=== PATIENT | male | born 1995 | race Caucasian/White ===

== ENCOUNTER 2021-09-03 19:09 | Emergency (ER) | payer OTHER ==
[~2021-09-03] VITALS: Ht 167.6 cm; Wt 68.2 kg
[2021-09-03] MEDS: TraMADol HCL 50 MG TABLET PO ONE ×2 (19:53→20:13)
[2021-09-03 20:02] VITALS: BP 132/74
[2021-09-03] MEDS ORDERED: IBUP-2070 PO (20:08)
== END 2021-09-03 20:57 | disposition home or self-care (01) ==
LOC: EMS 19:16
DX: S92.352A Displaced fracture of fifth metatarsal bone, left foot, initial encounter for closed fracture (principal); X50.1XXA Overexertion from prolonged static or awkward postures, initial encounter; Y93.89 Activity, other specified; Y92.89 Other specified places as the place of occurrence of the external cause; Y99.8 Other external cause status
CPT/HCPCS: 29515; 99284

== ENCOUNTER 2023-09-21 15:27 | Emergency (ER) | payer BC, OTHER ==
[~2023-09-21] VITALS: Ht 172.7 cm; Wt 76.0 kg
[~2023-09-21 15:27] MED LIST: IBUP-1492 PO
[2023-09-21 15:39] VITALS: BP 143/84; TEMP 98.3
[2023-09-21] MEDS ORDERED: LIDO700A15 TP (16:15)
[2023-09-21] MEDS ORDERED: ACET-3385 PO (16:15)
[2023-09-21] MEDS ORDERED: IBUP-1492 PO (16:15)
[2023-09-21] MEDS: ACETAMINOPHEN 500 MG TABLET PO ONE (16:45)
[2023-09-21] MEDS: LIDOCAINE 5% TRANSDERMAL PATCH TD ONE (16:45)
[2023-09-21 17:07] VITALS: PULSE 78; RESP 16; O2SAT 98
== END 2023-09-21 17:20 | disposition home or self-care (01) ==
LOC: EMS 15:27
DX: R07.82 Intercostal pain (principal); F17.210 Nicotine dependence, cigarettes, uncomplicated
CPT/HCPCS: 99283; 71101; G0238